=== PATIENT | male | born 1995 | race African-American/Black ===

== ENCOUNTER 2019-10-30 01:17 | Emergency (ER) | payer MEDICAID ==
[~2019-10-30] VITALS: Ht 175.3 cm; Wt 65.0 kg
[2019-10-30 01:29] VITALS: BP 144/83
[2019-10-30] MEDS ORDERED: DIPHENHYDRAMINE 25MG CAPSULE PO ONE (02:00)
[2019-10-30] MEDS ORDERED: METOCLOPRAMIDE HCL 10MG TABLET PO ONE (02:00)
[2019-10-30] MEDS ORDERED: KETOROLAC 30MG/ML VIAL IM ONE (02:00)
== END 2019-10-30 03:06 | disposition home or self-care (01) ==
LOC: ER 01:17
DX: R51 Headache (principal); F12.10 Cannabis abuse, uncomplicated
CPT/HCPCS: 96372; 99283; J1885; J8597; Q0163